=== PATIENT | male | born 1970 | race Caucasian/White ===

== ENCOUNTER → 2018-04-28 | Outpatient (CLI) | payer BC ==
--- NOTE | 2018-04-28 15:12 | XR ---
Left knee HISTORY: Knee pain 3 views of left knee Mineralization, joint spaces and alignment are maintained. Suprapatellar increased density may be ind icative of joint effusion. No fracture or dislocation. IMPRESSION: Possible joint effusion, correlate. Knee MRI may be of benefit.
== END | disposition home or self-care (01) ==
LOC: RADXRMAIN 10:24
PROVIDERS: ATTEND Family Medicine
DX: M25.562 Pain in left knee (principal)